=== PATIENT | female | born 1985 ===

== ENCOUNTER 2017-05-17 14:57 | Emergency (ER) | payer OTHER ==
[2017-05-17 15:09] VITALS: BP 124/88
[2017-05-17] MEDS ORDERED: DEXAMETHASONE 4 MG TABLET PO ONE (15:36)
[2017-05-17] MEDS ORDERED: FAMOTIDINE 20 MG TABLET PO ONE (15:37)
--- NOTE | 2017-05-17 15:53 | ER Document Report ---
ED Medical Screen (RME) - General Chief Complaint: Allergic Reaction Stated Complaint: POSSIBLE ALLERGIC REACTION Time Seen by Provider: 05/17/17 15:36 Mode of Arrival: Ambulatory Information source: Patient TRAVEL OUTSIDE OF THE [place] IN LAST 30 DAYS: No - HPI Onset: This afternoon - 1-1/2 HRS PRIOR TO ARRIVL TO E.D. Onset/Duration: Gradual Quality of pain: No pain Associated Symptoms: Other - THROAT FEELS SCRATCHY AND ? SWOLLEN Exacerbated by: Denies Relieved by: Denies Similar symptoms previously: No Recently seen / treated by doctor: No - Related Data Smoking: Non-smoker Frequency of alcohol use: Occasional Drug Abuse: None Allergies/Adverse Reactions: No Known Allergies Allergy (Verified 05/17/17 15:05) Past Medical History - General Information source: Patient - Social History Cigarette use (# per day): No Chew tobacco use (# tins/day): No Frequency of alcohol use: Occasional Drug Abuse: None Lives with: Spouse/Significant other Family history: Reviewed & Not Pertinent - Past Medical History Cardiac Medical History: Reports: None Pulmonary Medical History: Reports: None EENT Medical History: Reports: Other - SEASONAL ALLERGIES, SINUSITIS, ETC. Endocrine Medical History: Reports: None Renal/ Medical History: Reports: None. Denies: Hx Peritoneal Dialysis Malignancy Medical History: Reports: None GI Medical History: Reports: None Musculoskeltal Medical History: Reports None Psychiatric Medical History: Reports: None Surgical Hx: Negative Review of Systems - Review of Systems Constitutional: No symptoms reported EENT: See HPI Cardiovascular: No symptoms reported Respiratory: Short of breath - SLIGHT Gastrointestinal: No symptoms reported Genitourinary: No symptoms reported Musculoskeletal: No symptoms reported Skin: No symptoms reported Neurological/Psychological: No symptoms reported Physical Exam - Vital signs Vitals: Temp Pulse Resp BP Pulse Ox 98.8 F 82 14 124/88 H 100 05/17/17 15:05 05/17/17 15:05 05/17/17 15:05 05/17/17 15:05 05/17/17 15:05 Interpretation: Normal. No: Hypotensive, Tachycardic, Tachypneic - General General appearance: Appears well, Alert In distress: None - HEENT Head: Normocephalic Eyes: Normal Conjunctiva: Normal Ears: Normal Nasal: Normal Mouth/Lips: Other - TONGUE SLIGHTLY SWOLLEN Mucous membranes: Normal, Moist Pharynx: Normal Neck: Supple, Other - BREATHES EASILY W/ NECK FULLY FLEXED. - Respiratory Respiratory status: No respiratory distress Breath sounds: Normal. No: Wheezing - Cardiovascular Rhythm: Regular Heart sounds: Normal auscultation Murmur: No - Abdominal Inspection: Normal Distension: No distension - Back Back: Normal - Extremities General upper extremity: Normal inspection General lower extremity: Normal inspection - Neurological Neuro grossly intact: Yes Cognition: Normal Orientation: AAOx4 - Psychological Associated symptoms: Normal affect, Normal mood - Skin Skin Temperature: Warm Skin Moisture: Dry Skin Color: Normal Skin Turgor: Elastic Course - Re-evaluation Re-evalutation: 05/17/17 16:17 PATIENT STATES SHE'S FEELING BETTER. NO APPARENT DISTRESS. - Vital Signs Vital signs: Temp Pulse Resp BP Pulse Ox 98.8 F 82 14 124/88 H 100 05/17/17 15:05 05/17/17 15:05 05/17/17 15:05 05/17/17 15:05 05/17/17 15:05 Doctor's Discharge - Discharge Clinical Impression: Allergic reaction Qualifiers: Encounter type: initial encounter Qualified Code(s): T78.40XA - Allergy, unspecified, initial encounter Condition: Stable Disposition: HOME, SELF-CARE Instructions: Food Allergy ([facility]), Use of Diphenhydramine, Acid-Suppressing Medication ([facility]), Corticosteroid Medication ([facility]) Additional Instructions: AVOID CASHEW NUTS. IF SYMPTOMS BEGIN TO RECUR, YOU MAY TAKE BENADRYL, 25-50 mg EVERY 4 TO 6 HOURS, AND PEPCID (OR TAGAMET, OR ZANTAC) DIRECTED. RETURN TO E.R. IF YOUR CONDITION WORSENS, ANY TIME.
== END 2017-05-17 16:20 | disposition home or self-care (01) ==
LOC: ER 14:57
DX: T78.40XA Allergy, unspecified, initial encounter (principal)
CPT/HCPCS: 99283